=== PATIENT | female | born 1980 | race Caucasian/White ===

== ENCOUNTER 2017-07-26 01:06 | Inpatient (IN) | payer OTHER ==
[~2017-07-26] VITALS: Ht 160 cm; Wt 97.1 kg
[~2017-07-26 01:06] MED LIST: PREN1TAB47
[2017-07-26] MEDS ORDERED: Lactated Ringer's 1,000 ML IV PRN (01:23)
[2017-07-26] MEDS ORDERED: Methylergonovine 0.2 mg/mL Inj IM PRN ×2 (01:25→04:20)
[2017-07-26] MEDS ORDERED: Carboprost 250 mCg/mL Inj IM PRN ×2 (01:25→04:20)
[2017-07-26] MEDS ORDERED: Hemorrhage Kit, Post Partum XX ONE ×2 (01:25→04:20)
[2017-07-26] MEDS ORDERED: Oxytocin 10 Unit/mL Inj IM PRN ×2 (01:25→04:20)
[2017-07-26] MEDS ORDERED: Oxytocin 30 Units/500 mL LR 30 UNITS in IV Premix 1 EACH IV PRN ×3 (01:25→04:20)
[2017-07-26] MEDS ORDERED: Sodium Chloride LOK Flush 10 mL Syringe IVFLUSH PRN (01:25)
[2017-07-26 01:40] LABS: Mean Corpuscular Hemoglobin 30.4 pg (27.0-35.0); Mean Corpuscular Volume 87.6 fL (81-100)
--- NOTE | 2017-07-26 02:25 | PCM.HPOB ---
Subjective Date of Service: Jul 26, 2017 Referring Provider: Admitting Physician: Fernanda Pena MD Primary Care Physician: Nopcp Attending Physician: Fernanda Pena MD Chief Complaint Contractions History of Present History of Present Illness 36 Y at 40w5d ROSE 07/21/17 by LMP and CW 11 weeks US. Contractions since 23:00 (07/25/17) at presentation crvix 6 cm/BBW complicated with: 1. Maternal cardiac arrhythmia and mitral valve prolapse, not on medications 2. History of 8-9 Lb babies in previous pregnancies with no complications. Last Ultrasound 07/05/17 Estimated weight is 3610 grams +/- 534 grams (7 pounds and 15 ounces +/- 19 ounces), the 75th percentile. 3. Varicella non-immune 4. PCN allergy , swelling. Past Medical History Surgical History: cholecystectomy, tonsillectomy and adenoidectomy Hx Tobacco Use: No Hx Alcohol Use: No Hx Substance Use: No Past Family History Family History Cardiac disease (Father and multiple members in father side) Skin cancer Review of Systems ROS 11 points ROS is negative except for the items in HPI Allergy Coded Allergies: Penicillins (Verified Allergy, Severe, SWELLING, 04/12/10) Exam Vital Signs VSS heart tones: category 1 Constitutional: Well-developed HEENT: Atraumatic, PERRLA Lungs: Clear to Auscultation, Clear to Percussion Heart: Regular Rate/Rhythm Extremities: Edema (+2) Neurological/Psychiatric: Alert, Oriented X3 Neuro: Reflexes 2+, No Clonus noted Additional Information Cevix: 9 cm, AROM meconium stained fluid. Cervix 8 cm after AROM/75%/-3 station/ cephalic. Labs/Diagnostics Lab/Diagnostic Information Laboratory Tests 72 Hours Test 07/26/17 01:38 White Blood Count 14.8th/mm3 (3.8-10.1) Red Blood Count 4.21mil/mm3 (3.90-5.20) Hemoglobin 12.8g/dL (12.0-15.6) Hematocrit 36.9% (35.0-46.0) Mean Corpuscular Volume 87.6fL (81-100) Mean Corpuscular Hemoglobin 30.4pg (27.0-35.0) Mean Corpuscular Hemoglobin Concent 34.7% (32.0-37.0) Red Cell Distribution Width 13.6% (12.3-15.4) Platelet Count 112bil/L (150-400) Maternal Blood Type: O (positive ) Antibody Screen: negative Group B Strep Results: Negative Rubella: Immune Additional Information HIV non-reactive HepBAg non-reactive GC/CT negative DM screen not reported in records, negative per patient. OB Intrapartum Assessment/Plan Assessment 36 Y at 40w5d ROSE 07/21/17 by LMP and CW 11 weeks US. Active labor AROM at 1:49 (07/26/17) complicated with: 1. Maternal cardiac arrhythmia and mitral valve prolapse, not on medications 2. History of 8-9 Lb babies in previous pregnancies with no complications. Last Ultrasound 07/05/17 Estimated weight is 3610 grams +/- 534 grams (7 pounds and 15 ounces +/- 19 ounces), the 75th percentile. 3. Varicella non-immune 4. PCN allergy , swelling. Intrapartum plan Declined epidural. Continue current care. Anticpiate . May consider augmentation if needed. Axel Plascencia MD Jul 26, 2017 02:25
[2017-07-26] MEDS ORDERED: Lactated Ringer's 1,000 ML IV SCH ×2 (03:32→04:19)
[2017-07-26] MEDS ORDERED: Ondansetron 2 mg/mL 2 mL Inj IVPUSH PRN (03:35)
[2017-07-26] MEDS ORDERED: fentaNYL-PF 50 mCg/mL 2 mL Inj IVPUSH PRN (03:35)
[2017-07-26] MEDS ORDERED: fentaNYL-PF 50 mCg/mL 2 mL Inj IVPUSH ONE (04:10)
[2017-07-26] MEDS ORDERED: Benzocaine (Dermoplast) 20% 60 Gm Spray TOPICAL PRN (04:20)
[2017-07-26] MEDS ORDERED: LANOlin HPA 7 Gm Ointment TOPICAL PRN (04:20)
[2017-07-26] MEDS ORDERED: oxyCODONE-Acetamin 5-325 mg Tablet PO PRN (04:20)
[2017-07-26] MEDS ORDERED: Witch Hazel-Glycerin Pads TOPICAL PRN (04:20)
--- NOTE | 2017-07-26 05:41 | OP ---
[address] [address] OPERATIVE REPORT PATIENT: DANIELLE BRIAN : 1980 MR#: [id number] ADMIT: 07/26/2017 JOB ID: [id number] DATE OF SURGERY: 07/26/2017 PREOPERATIVE DIAGNOSIS(ES): 1. Term intrauterine . 2. Spontaneous active labor. 3. History of 8-9 pounds babies in previous pregnancies with no complications. Last ultrasound was July 05, 2017, with estimated weight of 3610, 7 pounds and 15 ounces at 75th percentile. 4. History of maternal cardiac arrhythmia and mitral valve prolapse, not on any medications. 5. Varicella nonimmune. 6. PENICILLIN allergy reaction is swelling. 7. History of depression. POSTOPERATIVE DIAGNOSIS(ES): 1. Term intrauterine . 2. Spontaneous active labor. 3. History of 8-9 pounds babies in previous pregnancies with no complications. Last ultrasound was July 05, 2017, with estimated weight of 3610, 7 pounds and 15 ounces at 75th percentile. 4. History of maternal cardiac arrhythmia and mitral valve prolapse, not on any medications. 5. Varicella nonimmune. 6. PENICILLIN allergy reaction is swelling. 7. History of depression. PROCEDURE: Spontaneous vaginal delivery complicated with shoulder dystocia. TIME OF HEAD DELIVERY: 3:43 and 20 seconds a.m. TIME OF BABY DELIVERY: 3:44 and 40 seconds. TOTAL SHOULDER DYSTOCIA TIME: 80 seconds. SURGEON: Axel Plascencia MD. CONTAMINATION CONSULTANT: None. ANESTHESIA: None. ESTIMATED BLOOD LOSS: 300 mL. OUTCOME: Male with no nuchal cord. Apgars 7 and 9 at one and five minutes respectively. Meconium stained amniotic fluid. Placenta delivered intact with a three-vessel cord. cord gases arterial: pH 7.162, venous pH 7.329. SPECIMEN: Cord segment for gases and cord blood for typing. DESCRIPTION OF PROCEDURE: This is a 36-year-old 5, para 4-0-0-4, presented at 40 weeks and 5 days gestation with spontaneous labor. The patient was scheduled for induction of labor later today, but she presented in active labor. Contractions started last night at 23:00. When she presented to the hospital cervix was 6 cm, 80% effaced, -5 station at approximately 1:10 a.m. Reassessment cervix found to be 9 cm dilated at approximately 1:34 a.m. Then artificial rupture of membrane was performed at 1:49 a.m. Meconium stained fluid. Cervix retracted to 8 cm, 75% and -4 station. The patient continued to contract regularly, was 9 cm dilated and 90% effaced, 0 station at 3:30 a.m. She found to be completely dilated at 3:35 a.m. and she started pushing effectively to deliver after the shoulder dystocia. After head was delivered. No nuchal cord was palpable. Then with gentle downward traction, failed to deliver the anterior shoulder. Shoulder dystocia recognized. Extra personal were called to the room. Mother was coached through the shoulder dystica delivery, to stop pushing and instructed to push when appropriate. The patient was placed in McRobert position, anterior shoulder rotation was attempted, followed by posterior arm and shoulder delivery attempt. Then suprapubic pressure was performed. A second attempt to deliver the posterior arm and the shoulder failed. Continued to do suprapubic pressure, then after anterior shoulder rotation the shoulder was delivered with legislative assistant of maternal expulsive pushing power. Cord was clamped and cut immediately. Infant was handed to the waiting blanket weaver, Dr. Brian. Cord segment was collected for gases. Cord blood was collected for typing. Apgars were 7 and 9 at one and nine minutes respectively. Anterior shoulder was the left shoulder. Briefly after delivery noted less movement in the left arm. Then by the 15 minutes after delivery the left arm movement was within normal limits and symmetrical upper extremities reflexes were noted. The placenta was delivered spontaneously intact with a three-vessel cord. Perineum was examined. A very superficial perineal laceration was noted, was hemostatic and no repair was needed. Uterus was firm. Fundal massage was performed after delivery of the placenta. Pitocin was started and will continue after delivery. Mother and in the delivery room and recovering in a stable condition. Axel Belcher was present and scrubbed for the entire procedure. The patient's diabetes screening was within normal limits, value of 125 on June 20, 2017. Mother's BMI is 37. MTDD
--- NOTE | 2017-07-26 07:23 | PCM.PNOBPP ---
Subjective Date of Service Jul 26, 2017 Post : Spontaneous Vaginal Delivery Subjective Lory is a 36-year-old G5 now P5 at 40 weeks 5 days who is now status post normal spontaneous vaginal delivery at 0 344 of a 10 lbs. 1 oz. male baby. She states she is doing well ambulating with assistance up to the bathroom only. She has moderate abdominal discomfort as this is her first "natural" , and she has not had epidural or pain medication. She has no complaints this morning, she is awake alert and oriented 3, she is lying in bed with swaddled baby boy. Patient denies fever, chills, headaches, vision changes, slurred speech, nausea, vomiting. Lochia: Light Pain Management: No or Minimal Pain Gastrointestinal: Good Appetite, No N/V Postop Activity: Ambulating in Room Only (With assistance) Group B Strep Results: Negative Rubella: Immune Blood Type: O (positive ) Labs Laboratory Tests 07/26/17 01:38: White Blood Count 14.8, Red Blood Count 4.21, Hemoglobin 12.8, Hematocrit 36.9, Mean Corpuscular Volume 87.6, Mean Corpuscular Hemoglobin 30.4, Mean Corpuscular Hemoglobin Concent 34.7, Red Cell Distribution Width 13.6, Platelet Count 112 Exam Vital Signs Vital Signs Heart rate 104/55, pulse 94, temperature 97.5 degrees. Vital Signs: VS reviewed, stable Exam Abdomen: Fundus firm, Abdomen soft, Abdomen appropriately tender : Voiding concerns Extremities: Normal pulses, No tenderness/swelling, No edema Lungs: Clear to Auscultation, Normal Air Movement Heart: Exam Unremarkable, Regular Rate/Rhythm, Normal S1, Normal S2, No Murmurs /Rubs/Gallops General: Alert, Oriented X3, No Acute Distress OB Post Assessment/Plan Assessment # Normal spontaneous vaginal delivery of G5 now P5 at term 40 weeks, 5 days -Routine care and management Attending Statement Patient seen by resident PPD#0 delivery complicated by shoulder dystocia and macrosomia. Continue routine care. Telly Murillo DO Jul 26, 2017 07:23 Fernanda Pena MD Jul 26, 2017 08:20
[2017-07-26] MEDS: Ascorbic Acid 500 mg Tablet PO SCH ×2 (07:34→19:31)
[2017-07-27 06:46] LABS: Mean Corpuscular Hemoglobin 30.4 pg (27.0-35.0)
--- NOTE | 2017-07-27 07:54 | PCM.DIMED ---
Discharge Instructions Date of Service Jul 27, 2017 Dates of Hospitalization Jul 26, 2017 at 01:14 Discharge Diagnosis Discharge Diagnosis # Normal spontaneous vaginal delivery of a 4568 gm live born male at 40.5 weeks. # 80 second shoulder dystocia. Test Results Test Results White blood cell count on discharge 13.6 and trending down. Diet Discharge Diet: No restrictions Activity Discharge Activity: Limited until seen by PCP Call your provider Call your provider for: Fever or Chills, Shortness of breath, Bleeding, Chest pain, Vomitting, Excessive diarrhea, Weakness (unilateral) Patient Instructions Patient Instructions You have been given a prescription for ibuprofen for pain. Take one 800 mg tablet of Ibuprofen every 6-8 hours as needed for discomfort. We provided you with a prescription for docusate which is a stool softener. You may take 1 docusate daily for constipation if needed only. If you experience any increased bleeding please call [facility] immediately. If you begin to experience dizziness weakness or large amount of bleeding go to the emergency room. This means if you soak 2 or more pads for more than 2 hours than call the clinic or go to the Emergency Room. You have been set up for an appointment for follow-up in [address] [facility]. Please check your BP several times between now and then and write them in a log to bring to your 2 week clinic visit. If you experience depression, Please seek help by calling [facility] or the Emergency Room. Nothing per vagina for 6 weeks (this includes tampons and intercourse). If your breast become red and warm and swollen continue to nurse and seek medical attention for evaluation for mastitis. Drink plenty of water and eat lots of fruits and vegetables. If you spike a fever in the next 2 weeks please call [facility]. [facility] 6 weeks for your normal visit. Follow-up plan Please follow-up [facility] in 6 weeks as discussed. Follow-up with PCP in: 6 weeks (for normal visit) Telly Murillo DO Jul 27, 2017 07:54
--- NOTE | 2017-07-27 07:59 | PCM.DC.OB ---
Obstetrical Discharge Summary Date of Service Jul 27, 2017 Date of hospital admission Jul 26, 2017 at 01:14 Date of Discharge: Jul 27, 2017 Providers Admitting Physician: Fernanda Pena MD Primary Care Physician: Nopdeyvi Attending Physician: Fernanda Pena MD Diagnosis at Time of Discharge # Normal spontaneous vaginal delivery at 40 weeks and 5 days of a 4568 g liveborn male. # 80 second shoulder dystocia Problems: Consultations Anesthesia for epidural Brief History and Physical: This is a 36 Y now at 40w5d with ROSE 07/21/17 by LMP and CW 11 weeks US. who presented in active labor and anam every 3 minutes with strong contractions. Onset of labor was since 23:00 (07/25/17) at presentation crvix was 6 cm/BBW. heart tones were 145, moderate variability, positive accelerations and no decelerations. Her white blood cell count of 14.8 g. She is varicella nonimmune. complicated by history of Maternal cardiac arrhythmia and mitral valve prolapse, not on medications. History of 8-9 Lb babies in previous pregnancies with no complications. Last Ultrasound 07/05/17 Estimated weight is 3610 grams +/- 534 grams (7 pounds and 15 ounces +/- 19 ounces), the 75th percentile. PCN allergy, gets swelling. Exam Abdomen: Fundus firm, Abdomen soft, Abdomen appropriately tender : Voiding without difficulty Extremities: Normal pulses, No tenderness/swelling, pitting edema to level of ankles Lungs: Clear to Auscultation, Normal Air Movement Heart: Exam Unremarkable, Regular Rate/Rhythm, Normal S1, Normal S2, No Murmurs /Rubs/Gallops General: Alert, Oriented X3, No Acute Distress Hospital Course: This is a 36 Y now at 40w5d with ROSE 07/21/17 by LMP and CW 11 weeks US. who presented in active labor and anam every 3 minutes with strong contractions. Patient was admitted in active labor with onset since 23:00 (07/25) at presentation crvix was 6 cm/BBW. heart tones were 145, moderate variability, positive accelerations and no decelerations. Her white blood cell count of 14.8 g. She is varicella nonimmune. complicated by history of Maternal cardiac arrhythmia and mitral valve prolapse, not on medications. History of 8-9 Lb babies in previous pregnancies with no complications. Last Ultrasound 07/05/17 Estimated weight is 3610 grams +/- 534 grams (7 pounds and 15 ounces +/- 19 ounces), the 75th percentile. PCN allergy, gets swelling. AROM was at 0149 on 07/26/2017, and mother progressed to spontaneous vaginal delivery of a 4568 g live born male child at 0 344 on 07/26/2017 following an 80 second shoulder dystocia, and after total labor time of 4 hours and 43 minutes. The placenta delivered intact 8 minutes later. Since then mother has been ambulating without difficulty in the hallways, appetite has been good, she is voiding without difficulty, passing gas, her pain today is significantly improved since yesterday, and her weight puts out his trending down and 13.6 today on day of discharge. Vit/Fe Fumarate/Fa-Expunged Drug, Do (-Expunged Drug, Do Not Renew!) 1 Tab Tablet DAILY (Reported) Discharge Medications: Ibuprofen 800 mg every 6-8 hours as needed for pain Disposition Discharge home Follow-up plan Following up [facility] Discharge Diet: No restrictions Discharge Activity-General: Pelvic Rest for 6 weeks, Try not to overdue, Be up and about, Balance rest and activity, Activity as pain allows, Activity as energy allows, No lifting >15 pounds for 2 weeks Patient instructions Please do not not lift more than 10 pounds for the next 6 weeks. Telly Murillo DO Jul 27, 2017 07:59
[2017-07-27] MEDS: Ascorbic Acid 500 mg Tablet PO SCH (08:27)
[2017-07-27] MEDS ORDERED: IBUP800T28 PO (08:51)
[2017-07-27] MEDS ORDERED: DOCU-41 PO (09:10)
== END 2017-07-27 14:08 | disposition home or self-care (01) | DRG 775 ==
LOC: FBCO 01:06 → FBC 01:14
PROVIDERS: ADMIT Obstetrics & Gynecology; ATTEND Obstetrics & Gynecology
PROC: 10E0XZZ Delivery of Products of Conception, External Approach (ICD-10-PCS; principal; 2017-07-26)
PROC: 10907ZC Drainage of Amniotic Fluid, Therapeutic from Products of Conception, Via Natural or Artificial Opening (ICD-10-PCS; 2017-07-26)
DX: O66.0 Obstructed labor due to shoulder dystocia (principal); O77.0 Labor and delivery complicated by meconium in amniotic fluid; O36.63X0 Maternal care for excessive fetal growth, third trimester, not applicable or unspecified; Z88.0 Allergy status to penicillin; Z3A.40 40 weeks gestation of pregnancy; Z37.0 Single live birth

== ENCOUNTER 2017-07-29 18:33 | Emergency (ER) | payer OTHER ==
[~2017-07-29] VITALS: Ht 160 cm; Wt 93.6 kg
[~2017-07-29 18:33] MED LIST changes: +DOCU-41 PO; +IBUP800T28 PO
[2017-07-29 18:44] VITALS: BP 129/84; PULSE 79; RESP 18; O2SAT 100
[2017-07-29 19:30] LABS: APPEARANCE,URINE CLEAR (CLEAR,HAZY); COLOR,URINE YELLOW (YELLOW); OCCULT BLOOD,URINE LARGE (NEGATIVE); UROBILINOGEN,URINE NORMAL (NORMAL)
--- NOTE | 2017-07-29 19:49 | ED.REPORT ---
HPI-Fever Date of Service Jul 29, 2017 ED Provider: Tom Lopez DO Pt is a 36 year old female with a history of recent vaginal delivery and bladder infections who presented to the ED complaining of hematuria onset yesterday. She c/o associated fever. Pt denies pus-like discharge and dysuria, indicating that the dysuria was resolved since taking Keflex. She states that she currently has a bladder infection and that she has been taking Keflex since yesterday with mild relief. Pt took 800 mg of Ibuprofen with mild relief prior to arrival. The pt reports that she has had three doses of antibiotics, and the clinic reported that her urine culture showed E. coli present in her urine. Nursing Notes Stated Complaint: FEVER Chief Complaint: Female Abdominal Pain Nursing Notes Reviewed: Yes Allergies: Coded Allergies: Penicillins (Verified Allergy, Severe, SWELLING, 07/29/17) oxycodone (Verified Allergy, Severe, vomiting, 07/29/17) Scheduled Docusate Sodium (Colace) 100 Mg Capsule 100 MG PO DAILY Vit/Fe Fumarate/Fa-Expunged Drug, Do (-Expunged Drug, Do Not Renew!) 1 Tab Tablet DAILY Scheduled PRN Ibuprofen (Ibuprofen) 800 Mg Tablet 800 MG PO Q6H PRN PRN For Pain General Time Seen by MD: 19:49 Chief Complaint Other (Hematuria) Hx Obtained From: Patient Arrived By: Walk-in Onset Occurred: Yesterday Symptom Duration: Since onset Severity: Current: No pain currently Severity: Maximum: No pain Recent Healthcare: Recent doctor visit, Recent hospitalization Similar Sx Previous: No Past Medical History Past Medical History Vaginal delivery on 07/26 - complicated with: 1. Maternal cardiac arrhythmia and mitral valve prolapse, not on medications 2. History of 8-9 Lb babies in previous pregnancies with no complications. Last Ultrasound 07/05/17 Estimated weight is 3610 grams +/- 534 grams (7 pounds and 15 ounces +/- 19 ounces), the 75th percentile. 3. Varicella non-immune 4. PCN allergy , swelling. Past Surgical History Adenoidectomy Reports: Cholecystectomy, Tonsillectomy Family History Cardiac disease (father and multiple members on father's side) Smoking History Never Smoker Social History Alcohol Use: Denies alcohol use Drug Use: Denies drug use Other Social History: Good social support Ambulatory Status Independent Review of Systems Constitutional: Reports: Fever Female: Reports: Hematuria, Denies: Dysuria, Vaginal discharge Complete sys rev & neg: except as marked. Physical Exam Initial Vital Signs Vital Signs (First) Date Time Temp Pulse Resp B/P Pulse Ox O2 Delivery O2 Flow Rate FiO2 07/29/17 18:44 37.9 79 18 129/84 100 Room Air Initial VS: Reviewed Head / Eyes: Atraumatic, Normocephalic Abdomen / GI: Soft, Non-tender Extremities: Vascular intact, Neuro intact Psychiatric: Mood/affect normal, Behavior normal General/Constitutional: Awake, Alert Neck: Atraumatic, Full range of motion Respiratory / Chest: Atraumatic, Breath sounds NL, Breath sounds = bilat Cardiovascular: Heart rate NL, Regular rhythm, Heart sounds NL Skin: Atraumatic, Warm, Dry, Intact Neurologic: Oriented X3, Speech NL, CN II - XII intact Interpretation & Diagnostics Lab Results Interpretation Test 07/29/17 19:05 07/29/17 19:08 Hold Urine Received (Received) Urine Color Yellow (YELLOW) Urine Appearance Clear (CLEAR,HAZY) Urine pH 7.0 (5.0-8.0) Urine Specific [place] 1.010 (1.003-1.035) Urine Protein Negativemg/dL (NEG,TRACE) Urine Glucose (UA) Negativemg/dL (NEGATIVE) Urine Ketones Negativemg/dL (NEGATIVE) Urine Occult Blood Large (NEGATIVE) Urine Nitrite Negative (NEGATIVE) Urine Bilirubin Negative (NEGATIVE) Urine Urobilinogen Normalmg/dL (NORMAL) Urine Leukocyte Esterase Moderate (NEGATIVE) Urine RBC 3-10/hpf (0-2) Urine WBC 6-10/hpf (0-5) Urine Epithelial Cells Moderate/hpf (NONE-MOD) Urine Crystals None seen (NONE SEEN) Urine Bacteria Few/hpf (NONE-FEW) Urine Hyaline Casts None/lpf (NONE) Urine Granular Casts None seen (NONE SEEN) Urine Waxy Casts None seen (NONE SEEN) Urine Red Blood Cell Casts None seen (NONE SEEN) Urine White Blood Cell Casts None seen (NONE SEEN) Urine Mucus None seen (None Seen) Urine Trichomonas None seen (NONE SEEN) Urine Yeast None (NONE SEEN) Urinalysis Comment None Urine Culture Reflexed Indicated Re-Eval/Medical Decision Med Decision/Clinical Course Healthy 36-year-old female fever flank pain and Escherichia coli UTI. She received 2 g of IV ceftriaxone. Cultures should be available tomorrow. Meantime she will start back on the Keflex and 24-hour. Source of Hx: Old records Re-Evaluation/Progress #1: Time of Eval: 20:14 Re-Evaluation/Progress Note: Informed pt of plan for IV rocephin. Pt understands and agrees with plan. All questions addressed. Re-Evaluation/Progress #2: Time of Eval: 22:20 Re-Evaluation/Progress Note: Pt rechecked. Informed pt of plan for discharge. Pt understands and agrees with plan for discharge. F/U instructions and RTER warnings given. All questions addressed. Counseled Regarding: Diagnosis, Lab results, Need for follow-up, When/why to return to ED Discharge & Departure Impression: Primary Impression: Urinary tract infection Urinary tract infection type: acute pyelonephritis Qualified Code: N10 - Acute pyelonephritis Disposition: Home Discharge Condition All VS Reviewed: Yes Condition: Stable Patient Instructions: Urinary Tract Infection in Women (DC) Additional Instructions: Start the Keflex backup tomorrow evening. Call the clinic where you had the urine sample drawn. Have them review the culture results and be sure that Keflex is going to take care of your infection. Motrin or Tylenol as directed for pain. Return if any problems or worsening symptoms. Referrals: OTHER,PHYSICIAN Donato Attestation Portions of this note were transcribed by Bryanna Franco. I, Dr. Lopez personally performed the history, physical exam and medical decision-making; I reviewed and confirmed the accuracy of the information in the transcribed note. Signed by : Donato Alvarez, 07/29/17. copies to: BERNADETTE,Tom Aguero DO Jul 29, 2017 19:49 Bryanna De León Jul 29, 2017 20:51
[2017-07-29] MEDS ORDERED: 0.9% Sodium Chloride 1,000 ML IV ONE (20:15)
[2017-07-29] MEDS ORDERED: cefTRIAXone Inj 2,000 MG in Dextrose 5% Minibag Plus 50 ML IV ONE (20:15)
[2017-07-29 22:24] VITALS: BP 130/73; PULSE 99; RESP 16; O2SAT 98
== END 2017-07-29 22:25 | disposition home or self-care (01) ==
LOC: SED 19:19
DX: N10 Acute pyelonephritis (principal); B96.20 Unspecified Escherichia coli [E. coli] as the cause of diseases classified elsewhere; R50.9 Fever, unspecified; Z90.49 Acquired absence of other specified parts of digestive tract; Z79.01 Long term (current) use of anticoagulants; Z88.0 Allergy status to penicillin; Z88.5 Allergy status to narcotic agent; Z88.8 Allergy status to other drugs, medicaments and biological substances
CPT/HCPCS: 81000; 81025; 87086; 87088; 96365; 99284; J0696; J7030